=== PATIENT | male | born 1965 ===

== ENCOUNTER 2016-11-15 19:02 | Emergency (ER) | payer BC ==
[2016-11-15] MEDS ORDERED: MVI, Adult with Vitamin K 10 ML, Thiamine 100 MG, Folic Acid 1 MG in Sodium Chloride 0.... IV ONE ×4 (19:17)
--- NOTE | 2016-11-15 19:26 | EDM.PDOC ---
ED HPI GENERAL MEDICAL PROBLEM - General Chief Complaint: Behavioral/Psych Stated Complaint: SUICIDAL Time Seen by Provider: 11/15/16 19:07 - History of Present Illness INITIAL COMMENTS - FREE TEXT/NARRATIVE: HISTORY AND PHYSICAL: History of present illness: Patient's 51-year-old male with history of polysubstance abuse including alcohol and IV heroin who presents with concern of depressive symptoms and suicidal ideation he is brought here by his and is cooperative and does acknowledge depressive symptoms and suicidal ideation but does not have a plan currently he agrees to transport to psychiatric hospital for further evaluation and treatment Review of systems: As per history of present illness and below otherwise all systems reviewed and negative. Past medical history: As per history of present illness and as reviewed below otherwise noncontributory. Surgical history: As per history of present illness and as reviewed below otherwise noncontributory. Social history: No reported history of drug or alcohol abuse. Family history: As per history of present illness and as reviewed below otherwise noncontributory. Physical exam: HEENT: Atraumatic, normocephalic, pupils reactive, negative for conjunctival pallor or scleral icterus, mucous membranes moist, throat clear, neck supple, nontender, trachea midline. Lungs: Clear to auscultation, breath sounds equal bilaterally, chest nontender. Heart: S1S2, regular, negative for clicks, rubs, or JVD. Abdomen: Soft, nondistended, nontender. Negative for masses or hepatosplenomegaly. Negative for costovertebral tenderness. Pelvis: Stable nontender. Genitourinary: Deferred. Rectal: Deferred. Extremities: Atraumatic, negative for cords or calf pain. Neurovascular unremarkable. Neuro: Awake, alert, oriented. Cranial nerves II through XII unremarkable. Cerebellum unremarkable. Motor and sensory unremarkable throughout. Exam nonfocal. Diagnostics: CBC CMP magnesium EKG chest x-ray UA urine drug screen EtOH Therapeutics: Banana bag Impression: #1 depressive episode with suicidal ideation #2 polysubstance abuse Definitive disposition and diagnosis as appropriate pending reevaluation and review of above. - Related Data Allergies Allergy/AdvReac Type Severity Reaction Status Date / Time No Known Allergies Allergy Verified 11/15/16 19:11 Home Meds: Home Meds Acetaminophen/HYDROcodone [Brinnon 325-5 MG] 1 tab PO Q6H PRN #10 tablet 02/08/16 [Rx] Cholecalciferol (Vitamin D3) [Vitamin D3] 1,000 unit PO DAILY 02/08/16 [History] Doxycycline [Vibramycin] 100 mg PO Q12HR #20 cap 02/08/16 [Rx] Esomeprazole [NexIUM] 1 cap PO DAILY 02/08/16 [History] Fluticasone Propionate [Flonase] 50 mcg IN BID 02/08/16 [History] Glimepiride [Amaryl] 4 mg PO BID 02/08/16 [History] Insulin Detemir [Levemir Flextouch] 60 units SUBCUT BEDTIME 02/08/16 [History] Multivitamin [Multivitamins] 1 cap PO DAILY 02/08/16 [History] Roy-3 Fatty Acids [Fish Oil] 1,200 mg PO DAILY 02/08/16 [History] Testosterone Cypionate [Depo-Testosterone] 100 mg IM WEEKLY 02/08/16 [History] atorvaSTATin [Lipitor] 10 mg PO BEDTIME 02/08/16 [History] metFORMIN [Glucophage] 1,000 mg PO BID 02/08/16 [History] Past Medical History HEENT History: Reports: None Cardiovascular History: Reports: High Cholesterol, Hypertension Respiratory History: Reports: None Gastrointestinal History: Reports: Other (See Below) Other Gastrointestinal History: unbilical hernia Genitourinary History: Reports: None Musculoskeletal History: Reports: None Neurological History: Reports: None Psychiatric History: Reports: Depression Endocrine/Metabolic History: Reports: Diabetes, Type II Hematologic History: Reports: None Dermatologic History: Reports: None - Infectious Disease History Infectious Disease History: Reports: Chicken Pox - Past Surgical History GI Surgical History: Reports: Hernia, Abdominal Male Surgical History: Reports: None Endocrine Surgical History: Reports: Parathyroidectomy, Thyroidectomy, Other ( See Below) Social & Family History - Family History Family Medical History: Noncontributory - Tobacco Use Smoking Status *Q: Never Smoker Second Hand Smoke Exposure: No - Caffeine Use Caffeine Use: Reports: Coffee - Recreational Drug Use Recreational Drug Use: Yes Recreational Drug Type: Reports: Heroin ED ROS GENERAL - Review of Systems Review Of Systems: ROS reveals no pertinent complaints other than HPI. ED EXAM, GENERAL - Physical Exam Exam: See Below (See dictation) Course - Vital Signs Last Recorded V/S: Last Vital Signs Temp 36.5 C 08/15/17 19:11 Pulse 97 11/15/16 19:11 Resp 14 11/15/16 19:11 BP 119/83 11/15/16 19:11 Pulse Ox 97 11/15/16 19:11 - Orders/Labs/Meds Orders: Active Orders 24 hr Category Date Time Status EKG Documentation Completion [RC] STAT Care 11/15/16 19:11 Ordered Chest 1V Frontal [CR] Stat Exams 11/15/16 19:13 Ordered ACETAMINOPHEN [CHEM] Stat Lab 11/15/16 19:11 Ordered CBC WITH AUTO DIFF [HEME] Stat Lab 11/15/16 19:11 Ordered COMPREHENSIVE METABOLIC PN,CMP [CHEM] Stat Lab 11/15/16 19:11 Ordered DRUG SCREEN, URINE [URCHEM] Stat Lab 11/15/16 19:11 Uncollected ETHANOL BLOOD MEDICAL [CHEM] Stat Lab 11/15/16 19:11 Ordered INR,PT,PROTHROMBIN TIME [COAG] Stat Lab 11/15/16 19:11 Ordered MAGNESIUM [CHEM] Stat Lab 11/15/16 19:17 Ordered SALICYLATE [CHEM] Stat Lab 11/15/16 19:12 Ordered MVI, Adult with Vitamin K [Infuvite Adult] 10 ml Med 11/15/16 19:17 Active Thiamine [Vitamin B-1] 100 mg Folic Acid 1 mg Sodium Chloride 0.9% [Normal Saline] 1,000 ml IV ONETIME Medication Orders Multivitamins/Minerals 10 ml/Thiamine HCl 100 mg/ Folic Acid 1 mg/ Sodium Chloride 1,011.2 mls @ 125 mls/hr IV ONETIME ONE Stop: 11/16/16 03:22 Meds: Medications Generic Name Dose Route Start Last Admin Trade Name Nathanielq PRN Reason Stop Dose Admin Multivitamins/Minerals 10 ml/ 1,011.2 mls @ 125 mls/hr 11/15/16 19:17 Thiamine HCl 100 mg/ Folic IV 11/16/16 03:22 Acid 1 mg/ Sodium Chloride ONETIME ONE Departure - Departure Time of Disposition: 19:26 Disposition: DC/Tfer to Psych Hosp/Unit [facility] Condition: Good Clinical Impression: Depressive disorder, Alcohol abuse, Drug abuse - Discharge Information Forms: ED Department Discharge - My Orders Last 24 Hours: My Active Orders 11/15/16 19:11 EKG Documentation Completion [RC] STAT ACETAMINOPHEN [CHEM] Stat CBC WITH AUTO DIFF [HEME] Stat COMPREHENSIVE METABOLIC PN,CMP [CHEM] Stat DRUG SCREEN, URINE [URCHEM] Stat ETHANOL BLOOD MEDICAL [CHEM] Stat INR,PT,PROTHROMBIN TIME [COAG] Stat 11/15/16 19:12 SALICYLATE [CHEM] Stat 11/15/16 19:13 Chest 1V Frontal [CR] Stat 11/15/16 19:17 MAGNESIUM [CHEM] Stat MVI, Adult with Vitamin K [Infuvite Adult] 10 ml Thiamine [Vitamin B-1] 100 mg Folic Acid 1 mg Sodium Chloride 0.9% [Normal Saline] 1,000 ml IV ONETIME - Assessment/Plan Last 24 Hours: My Active Orders 11/15/16 19:11 EKG Documentation Completion [RC] STAT ACETAMINOPHEN [CHEM] Stat CBC WITH AUTO DIFF [HEME] Stat COMPREHENSIVE METABOLIC PN,CMP [CHEM] Stat DRUG SCREEN, URINE [URCHEM] Stat ETHANOL BLOOD MEDICAL [CHEM] Stat INR,PT,PROTHROMBIN TIME [COAG] Stat 11/15/16 19:12 SALICYLATE [CHEM] Stat 11/15/16 19:13 Chest 1V Frontal [CR] Stat 11/15/16 19:17 MAGNESIUM [CHEM] Stat MVI, Adult with Vitamin K [Infuvite Adult] 10 ml Thiamine [Vitamin B-1] 100 mg Folic Acid 1 mg Sodium Chloride 0.9% [Normal Saline] 1,000 ml IV ONETIME
[2016-11-15 19:51] LABS: CHLORIDE,CL 103 mmol/L (98-110); SODIUM,NA 139 mmol/L (136-146)
[2016-11-15 19:59] LABS: ACETAMINOPHEN < 3.0 ug/mL
[2016-11-15 20:48] VITALS: BP 112/78
--- NOTE | 2016-11-16 11:53 | CR ---
EXAM DATE: 11/15/16 PATIENT'S AGE: 51 Patient: ALBINA SCHILLING Facility: [place], [place] Site . Site : [id number] Study: XRay Chest [id number]/15/2017 7:52:53 PM Ordering Physician: Rafia Strickland Final Report: HISTORY: Alcohol, shortness of breath and pain. FINDINGS: AP portable chest radiograph demonstrates a normal cardiac silhouette. Pulmonary vasculature and francy are normal. No consolidation or pleural effusion is seen. No displaced rib fracture. IMPRESSION: No acute cardiopulmonary disease. Dictated by Olivia Gonzalez MD @ 11/15/2016 8:11:28 PM Dictated by: Olivia Gonzalez MD @ 11/15/2016 20:11:34 (Electronic Signature) Report Signed by Proxy. [facility]
== END 2016-11-15 20:46 ==
LOC: MW.ED 19:02
DX: F32.9 Major depressive disorder, single episode, unspecified (principal); F19.10 Other psychoactive substance abuse, uncomplicated; F10.10 Alcohol abuse, uncomplicated; I10 Essential (primary) hypertension; E78.00 Pure hypercholesterolemia, unspecified; E11.9 Type 2 diabetes mellitus without complications; Z79.899 Other long term (current) drug therapy; Z79.4 Long term (current) use of insulin; Z98.890 Other specified postprocedural states
CPT/HCPCS: 36415; 71010; 80053; 80305; 83735; 85025; 85610; 96365; 99285; G0480; J3411; J7040; 93005; 99284